=== PATIENT | male | born 1975 | race Caucasian/White ===

== ENCOUNTER 2017-03-13 10:21 | Day surgery (SDC) | payer BC ==
--- NOTE | ~2017-03-13 | EGD ---
EGD REPORT [facility] [address] [address] NAME: RAFY PRECIADO : [birth year] STATUS : REG [facility]#: [id number] AGE: 41 ADM/REG DATE : 03/13/17 MR#: [id number] REPORT SERV DATE: 03/13/17 DICTATED BY: DATE: REPORT STATUS : Draft TRANSCRIBED BY: [employer] DATE: 03/13/17 Endoscopy Center Patient Name: Rafy Preciado Date of : 1975 Attending MD: LAUREANO URENA MD Procedure Date No Time: 03/13/2017 Procedure: Upper GI endoscopy Indications: Dysphagia, Gastro-esophageal reflux disease Medicines: Propofol per Anesthesia Complications: No immediate complications. Procedure: Pre-Anesthesia Assessment: - ASA Grade Assessment: III - A patient with severe systemic disease. After obtaining informed consent, the endoscope was passed under direct vision. Throughout the procedure, the patient's blood pressure, pulse, and oxygen saturations were monitored continuously. The GIF H190 [id number] was introduced through the mouth, and advanced to the third part of duodenum. The upper GI endoscopy was accomplished without difficulty. The patient tolerated the procedure well. Findings: The examined esophagus was normal. A benign-appearing, intrinsic mild stenosis was found in the upper third of the esophagus and was traversed. A guidewire was placed and the scope was withdrawn. Dilation was performed with a Savary dilator with mild resistance at 60 Fr. The esophagus looked satisfactory post dilation A large hiatus hernia was present. Diffuse mild inflammation characterized by congestion (edema) and erythema was found in the entire examined stomach. Biopsies were taken with a cold forceps for Helicobacter pylori testing. Localized mild inflammation characterized by congestion (edema) and erythema was found in the duodenal bulb. Biopsies were taken with a cold forceps for evaluation of celiac disease. And giardia, whipple's disease, and enteritis The 2nd part of the duodenum and 3rd part of the duodenum were normal. Biopsies were taken with a cold forceps for evaluation of celiac disease. And giardia, whipple's disease, and enteritis Impression: - Normal esophagus. - Benign-appearing esophageal stricture. Dilated. - Hiatus hernia. - Gastritis. Biopsied. - Duodenitis. Biopsied. EGD REPORT [address] [address] NAME: RAFY PRECIADO : [birth year] STATUS : REG [facility] PAT#: [id number] AGE: 41 ADM/REG DATE : 03/13/17 MR#: [id number] REPORT SERV DATE: 03/13/17 DICTATED BY: DATE: REPORT STATUS : Draft TRANSCRIBED BY: [facility] DATE: 03/13/17 - Normal 2nd part of the duodenum and 3rd part of the duodenum. Biopsied. Recommendation: - Patient has a contact number available for emergencies. The signs and symptoms of potential delayed complications were discussed with the patient. Return to normal activities tomorrow. Written discharge instructions were provided to the patient. - Clear liquid diet today. - diet is clear liquid today, full liquid tomorrow, soft mushy food the next day, and resume usual diet the day after that. - Continue present medications. - Await pathology results. - Return to my office as previously scheduled. - Discharge patient to home. Procedure Code(s): --- Professional --- 61432, Esophagogastroduodenoscopy, flexible, transoral; with insertion of guide wire followed by passage of dilator(s) through esophagus over guide wire 07601, Esophagogastroduodenoscopy, flexible, transoral; with biopsy, single or multiple Diagnosis Code(s): --- Professional --- K22.2, Esophageal obstruction K44.9, Diaphragmatic hernia without obstruction or gangrene K29.70, Gastritis, unspecified, without bleeding K29.80, Duodenitis without bleeding R13.10, Dysphagia, unspecified K21.9, Gastro-esophageal reflux disease without esophagitis CPT copyright 2013 [employer]. All rights reserved. The codes documented in this report are preliminary and upon railroad yard worker review may be revised to meet current compliance requirements. Laureano Urena MD LAUREANO URENA MD 03/13/2017 12:18 PM This report has been signed electronically. Number of Addenda: 0 EGD REPORT [facility] [address] [address] NAME: RAFY PRECIADO : [birth year] STATUS : REG [facility]#: [id number] AGE: 41 ADM/REG DATE : 03/13/17 MR#: [id number] REPORT SERV DATE: 03/13/17 DICTATED BY: DATE: REPORT STATUS : Draft TRANSCRIBED BY: [employer] DATE: 03/13/17 Note Initiated On: 03/13/2017 11:20 AM Scope Withdrawal Time 0 hours 0 minutes 0 seconds [address] [address]
--- NOTE | ~2017-03-13 | EGD ---
EGD REPORT [facility] [address] [address] NAME: RAFY PRECIADO : 71 STATUS : REG [facility]#: [id number] AGE: 41 ADM/REG DATE : 03/13/17 MR#: [id number] REPORT SERV DATE: 03/13/17 DICTATED BY: LAUREANO URENA DATE: 03/13/17 REPORT STATUS : Draft [facility] DATE: 03/13/17 Endoscopy Center Patient Name: Rafy Preciado Date of : 1975 Attending MD: LAUREANO URENA MD Procedure Date No Time: 03/13/2017 Procedure: Upper GI endoscopy Indications: Dysphagia, Gastro-esophageal reflux disease Referring MD: Cuauhtemoc SILVA Medicines: Propofol per Anesthesia Complications: No immediate complications. Procedure: Pre-Anesthesia Assessment: - ASA Grade Assessment: III - A patient with severe systemic disease. After obtaining informed consent, the endoscope was passed under direct vision. Throughout the procedure, the patient's blood pressure, pulse, and oxygen saturations were monitored continuously. The GIF H190 [id number] was introduced through the mouth, and advanced to the third part of duodenum. The upper GI endoscopy was accomplished without difficulty. The patient tolerated the procedure well. Findings: The examined esophagus was normal. A benign-appearing, intrinsic mild stenosis was found in the upper third of the esophagus and was traversed. A guidewire was placed and the scope was withdrawn. Dilation was performed with a Savary dilator with mild resistance at 60 Fr. The esophagus looked satisfactory post dilation A large hiatus hernia was present. Diffuse mild inflammation characterized by congestion (edema) and erythema was found in the entire examined stomach. Biopsies were taken with a cold forceps for Helicobacter pylori testing. Localized mild inflammation characterized by congestion (edema) and erythema was found in the duodenal bulb. Biopsies were taken with a cold forceps for evaluation of celiac disease. And giardia, whipple's disease, and enteritis The 2nd part of the duodenum and 3rd part of the duodenum were normal. Biopsies were taken with a cold forceps for evaluation of celiac disease. And giardia, whipple's disease, and enteritis Impression: - Normal esophagus. - Benign-appearing esophageal stricture. Dilated. - Hiatus hernia. - Gastritis. Biopsied. EGD REPORT [address] [address] NAME: RAFY PRECIADO : [birth year] STATUS : REG [facility]#: [id number] AGE: 41 ADM/REG DATE : 03/13/17 MR#: [id number] REPORT SERV DATE: 03/13/17 DICTATED BY: LAUREANO URENA DATE: 03/13/17 REPORT STATUS : Draft TRANSCRIBED BY: [facility] DATE: 03/13/17 - Duodenitis. Biopsied. - Normal 2nd part of the duodenum and 3rd part of the duodenum. Biopsied. Recommendation: - Patient has a contact number available for emergencies. The signs and symptoms of potential delayed complications were discussed with the patient. Return to normal activities tomorrow. Written discharge instructions were provided to the patient. - Clear liquid diet today. - diet is clear liquid today, full liquid tomorrow, soft mushy food the next day, and resume usual diet the day after that. - Continue present medications. - Await pathology results. - Return to my office as previously scheduled. - Discharge patient to home. Procedure Code(s): --- Professional --- 44774, Esophagogastroduodenoscopy, flexible, transoral; with insertion of guide wire followed by passage of dilator(s) through esophagus over guide wire 90298, Esophagogastroduodenoscopy, flexible, transoral; with biopsy, single or multiple Diagnosis Code(s): --- Professional --- K22.2, Esophageal obstruction K44.9, Diaphragmatic hernia without obstruction or gangrene K29.70, Gastritis, unspecified, without bleeding K29.80, Duodenitis without bleeding R13.10, Dysphagia, unspecified K21.9, Gastro-esophageal reflux disease without esophagitis CPT copyright 2013 [employer]. All rights reserved. The codes documented in this report are preliminary and upon sole ruffer review may be revised to meet current compliance requirements. Laureano Urena MD LAUREANO URENA MD 03/13/2017 12:18 PM This report has been signed electronically. Number of Addenda: 0 EGD REPORT [facility] [address] [address] NAME: RAFY PRECIADO : [birth year] STATUS : REG [facility] PAT#: [id number] AGE: 41 ADM/REG DATE : 03/13/17 MR#: [id number] REPORT SERV DATE: 03/13/17 DICTATED BY: LAUREANO URENA DATE: 03/13/17 REPORT STATUS : Draft TRANSCRIBED BY: [facility] DATE: 03/13/17 Note Initiated On: 03/13/2017 11:20 AM Scope Withdrawal Time 0 hours 0 minutes 0 seconds [address] [id number]
[~2017-03-13 10:21] MED LIST: ACTIFED1 TAB OR; ALDROXICON PO; ALLEGRA PO; ALOE VESTA TOP; AMB5 PO; AMITIZA24 PO; ATIVAN2 MG PO; BISR PR; CALCIUM CITRATE + D PO; CALMOSEPTINE O2.5 OZ TOP; CALTRA600D PO; CARMEX T; CLARIT10 PO; COLACEUDL PO; CONSTULOSE PO; EMETROL LIQ.1 ML OR; EMETROL LIQ.1 ML PO; EMETROL LIQ.1 ML PO/LIQ; FLONASE NAS; IRON325 MG PO; KLONO1 PO; KLONO5 PO; L20 PO; LACT30UDL PO; LEXAPRO10 PO; LINZESS 290 M290 MCG PO; LOTRIMIN AF12 TOP; MAG CITRATE PO; MELATONIN5 M1 PO; MIRALAX POWDER1 PKT PO; MIRALAXPKT PO; MOMUD PO; MYLUD PO; MYTAB GAS125 MG PO; NEO-OINT TOP; NEO-OINT15 TOP; NEOSPORIN EX; NORCO1 TA1 PO; OS500+D PO; PAXIL30 MG PO; PEP20 PO; PRILOSEC40 MG PO; PRUNELAX PO; RISP1 PO; ROMYCIN OPH; SENTAB PO; SEROQUEL50 MG PO; SOAP SUDS ENEMA PR; SUCR PO; SUDAFED 60 MG T60 MG OR; SUDAFED PO; T PO; TEG200 PO; TINACTIN13 EX; TINACTIN13 TOP; TRAZ100 PO; TRAZ50 PO; TUSSIN DM1 M1 OR; TUSSIN DM1 M1 PO; VIMPAT100 MG PO; VISINE0.05 % OPH; VITAMIN D31000 UNIT PO; VITD PO; [UNRECOGNIZED DRUG - OTHER]; [UNRECOGNIZED DRUG - OTHER] EX; [UNRECOGNIZED DRUG - OTHER] OPH; [UNRECOGNIZED DRUG - OTHER] OR; [UNRECOGNIZED DRUG - OTHER] OT; [UNRECOGNIZED DRUG - OTHER] PO; [UNRECOGNIZED DRUG - OTHER] TOP
== END 2017-03-13 23:59 | disposition home health service (06) ==
LOC: DMU 10:21
PROVIDERS: Internal Medicine Gastroenterology
PROC: 0DB98ZX Excision of Duodenum, Via Natural or Artificial Opening Endoscopic, Diagnostic (ICD-10-PCS; 2017-03-13)
PROC: 0D718ZZ Dilation of Upper Esophagus, Via Natural or Artificial Opening Endoscopic (ICD-10-PCS; principal; 2017-03-13 11:30)
PROC: 0DB68ZX Excision of Stomach, Via Natural or Artificial Opening Endoscopic, Diagnostic (ICD-10-PCS; 2017-03-13 11:30)
DX: K29.50 Unspecified chronic gastritis without bleeding (principal); R56.9 Unspecified convulsions; K22.2 Esophageal obstruction; K44.9 Diaphragmatic hernia without obstruction or gangrene; I73.9 Peripheral vascular disease, unspecified; K21.9 Gastro-esophageal reflux disease without esophagitis; F41.9 Anxiety disorder, unspecified; D64.9 Anemia, unspecified; F43.10 Post-traumatic stress disorder, unspecified; M81.0 Age-related osteoporosis without current pathological fracture; Z88.8 Allergy status to other drugs, medicaments and biological substances; Z79.899 Other long term (current) drug therapy; Z87.442 Personal history of urinary calculi; Z98.890 Other specified postprocedural states
CPT/HCPCS: 88305; 88342; J2250; J3010